=== PATIENT | male | born 1985 | race Hispanic/Latino ===

== ENCOUNTER 2018-01-07 19:05 | Emergency (ER) | payer SELFPAY ==
[2018-01-07 19:34] LABS: APPEARANCE,URINE Clear (CLEAR); BILIRUBIN,URINE Negative (NEGATIVE); COLOR,URINE Dark Yellow (YELLOW); GLUCOSE, URINE (UA) Negative (NEGATIVE); KETONES,URINE Trace mg/dL (NEGATIVE); LEUKOCYTE ESTERASE ,URINE Negative (NEGATIVE); NITRATE,URINE Negative (NEGATIVE); OCCULT BLOOD,URINE Negative (NEGATIVE); PROTEIN,URINE Trace (NEGATIVE)
[2018-01-07 19:49] LABS: CALCIUM OXALATE CRYSTALS,UR Few /LPF (None Seen)
[2018-01-07 19:50] LABS: MUCUS,URINE Moderate LPF (None Seen)
[2018-01-07 19:52] LABS: BACTERIA,URINE Few /HPF (None Seen)
[2018-01-07 20:03] LABS: BASOPHILS % (AUTO) 0.6 % (0.0-5.0); EOSINOPHILS % (AUTO) 2.4 % (0.0-8.0); HEMATOCRIT 44.1 % (42-54); LYMPHOCYTES % (AUTO) 27.9 % (21.0-51.0); MEAN CORPUSCULAR HEMOGLOBIN 29.4 pg (27.0-33.0); MEAN CORPUSCULAR HGB CONC 33.7 g/dL (32.0-36.0); MEAN CORPUSCULAR VOLUME 87.3 fL (79-99); MONOCYTES % (AUTO) 10.6 % (3.0-13.0); NEUTROPHILS % (AUTO) 58.5 % (40.0-77.0); PLATELET COUNT (AUTO) 273 K/uL (130-400); RED BLOOD CELL COUNT(AUTO) 5.06 MIL/uL (4.50-6.20); RED CELL DISTRIBUTION WIDTH 14.7 % (11.0-15.5); WHITE BLOOD COUNT (AUTO) 13.3 K/uL (4.8-10.8)
[2018-01-07 20:20] LABS: CREATININE 1.2 mg/dL (0.5-1.5); POTASSIUM 3.5 mmol/L (3.5-5.1)
[2018-01-07 20:25] LABS: ALBUMIN 3.6 g/dL (3.5-5.0); BILIRUBIN,TOTAL 0.4 mg/dL (0.2-1.0)
[2018-01-07] MEDS ORDERED: HYOSCYAMINE SULFATE 0.125 MG TAB.SUBL SL ONE (20:35)
[2018-01-07] MEDS ORDERED: CEFTRIAXONE SODIUM 500 MG VIAL ONE (20:45)
[2018-01-07] MEDS ORDERED: DOXYCYCLINE HYCLATE 100 MG TABLET PO ONE (20:46)
[2018-01-07] MEDS ORDERED: AZITHROMYCIN 250 MG TABLET PO ONE (20:46)
[2018-01-07] MEDS ORDERED: LIDOCAINE HCL-MPF 1% 2ML VIAL ONE (20:46)
== END 2018-01-07 21:04 | disposition home or self-care (01) ==
LOC: EDH 19:05
DX: K57.30 Diverticulosis of large intestine without perforation or abscess without bleeding (principal); N39.0 Urinary tract infection, site not specified; R03.0 Elevated blood-pressure reading, without diagnosis of hypertension; E07.9 Disorder of thyroid, unspecified; J45.909 Unspecified asthma, uncomplicated
CPT/HCPCS: 36415; 74176; 80053; 81001; 82150; 83690; 85025; 87088; 87486; 87797; 96372; 99285; J0696; J3490

== ENCOUNTER 2018-02-14 19:27 | Emergency (ER) | payer SELFPAY ==
[2018-02-14 20:13] LABS: BASOPHILS % (AUTO) 0.4 % (0.0-5.0); HEMATOCRIT 44.1 % (42-54); LYMPHOCYTES % (AUTO) 16.9 % (21.0-51.0); MEAN CORPUSCULAR HEMOGLOBIN 28.3 pg (27.0-33.0); MEAN CORPUSCULAR HGB CONC 32.8 g/dL (32.0-36.0); MEAN CORPUSCULAR VOLUME 86.5 fL (79-99); MONOCYTES % (AUTO) 9.6 % (3.0-13.0); NEUTROPHILS % (AUTO) 72.1 % (40.0-77.0); PLATELET COUNT (AUTO) 208 K/uL (130-400); RED CELL DISTRIBUTION WIDTH 14.1 % (11.0-15.5); WHITE BLOOD COUNT (AUTO) 12.6 K/uL (4.8-10.8)
[2018-02-14] MEDS ORDERED: ASPIRIN 325 MG TABLET ONE (20:24)
[2018-02-14] MEDS ORDERED: SODIUM CHLORIDE 0.9% 1000ML 1,000 ML IV ONE (20:24)
[2018-02-14 20:26] LABS: INR 0.94 (0.85-1.15); PARTIAL THROMBOPLASTIN TIME 30.3 SEC (26.3-35.5); PROTHROMBIN TIME 9.9 SEC (9.6-11.6)
[2018-02-14 20:35] LABS: APPEARANCE,URINE Clear (CLEAR); BILIRUBIN,URINE Negative (NEGATIVE); COLOR,URINE Yellow (YELLOW); GLUCOSE, URINE (UA) Negative (NEGATIVE); KETONES,URINE Negative (NEGATIVE); LEUKOCYTE ESTERASE ,URINE Negative (NEGATIVE); NITRATE,URINE Negative (NEGATIVE); OCCULT BLOOD,URINE Negative (NEGATIVE); PROTEIN,URINE Negative (NEGATIVE); UROBILINOGEN,URINE 0.2 mg/dL (0.2-1.0)
[2018-02-14 20:40] LABS: ALBUMIN 3.4 g/dL (3.5-5.0); BILIRUBIN,TOTAL 0.8 mg/dL (0.2-1.0); TOTAL PROTEIN, SERUM 6.7 g/dL (6.0-8.3)
[2018-02-14 20:42] LABS: POTASSIUM 2.9 mmol/L (3.5-5.1)
[2018-02-14] MEDS ORDERED: POTASSIUM BICARB/CIT AC 25 MEQ TABLET.EFF ONE (21:06)
== END 2018-02-14 22:04 | disposition home or self-care (01) ==
LOC: EDH 19:27
DX: R07.89 Other chest pain (principal); F12.10 Cannabis abuse, uncomplicated; J45.909 Unspecified asthma, uncomplicated; E07.9 Disorder of thyroid, unspecified; Z72.0 Tobacco use
CPT/HCPCS: 36415; 71045; 80053; 81003; 82550; 83735; 83874; 84484; 85025; 85610; 85730; 93005; 99284; J7030

== ENCOUNTER 2018-02-16 14:24 | Emergency (ER) | payer SELFPAY ==
[2018-02-16] MEDS ORDERED: ASPIRIN 325 MG TABLET ONE (14:58)
[2018-02-16 15:03] LABS: BASOPHILS % (AUTO) 0.5 % (0.0-5.0); EOSINOPHILS % (AUTO) 2.5 % (0.0-8.0); HEMATOCRIT 44.3 % (42-54); LYMPHOCYTES % (AUTO) 21.4 % (21.0-51.0); MEAN CORPUSCULAR HEMOGLOBIN 28.8 pg (27.0-33.0); MEAN CORPUSCULAR HGB CONC 33.4 g/dL (32.0-36.0); MEAN CORPUSCULAR VOLUME 86.2 fL (79-99); MONOCYTES % (AUTO) 8.5 % (3.0-13.0); NEUTROPHILS % (AUTO) 67.1 % (40.0-77.0); NUCLEATED RED BLOOD CELLS 0.1 % (0.0-0.19); PLATELET COUNT (AUTO) 232 K/uL (130-400); RED BLOOD CELL COUNT(AUTO) 5.14 MIL/uL (4.50-6.20); RED CELL DISTRIBUTION WIDTH 13.8 % (11.0-15.5); WHITE BLOOD COUNT (AUTO) 11.7 K/uL (4.8-10.8)
[2018-02-16 15:15] LABS: INR 0.89 (0.85-1.15); PARTIAL THROMBOPLASTIN TIME 28.8 SEC (26.3-35.5); PROTHROMBIN TIME 9.4 SEC (9.6-11.6)
[2018-02-16 15:16] LABS: POTASSIUM 3.3 mmol/L (3.5-5.1)
[2018-02-16 15:33] LABS: ALBUMIN 3.5 g/dL (3.5-5.0); BILIRUBIN,TOTAL 0.8 mg/dL (0.2-1.0); TOTAL PROTEIN, SERUM 6.9 g/dL (6.0-8.3)
[2018-02-16] MEDS ORDERED: POTASSIUM BICARB/CIT AC 25 MEQ TABLET.EFF ONE (16:28)
[2018-02-16 17:35] LABS: APPEARANCE,URINE Clear (CLEAR); BILIRUBIN,URINE Negative (NEGATIVE); COLOR,URINE Yellow (YELLOW); GLUCOSE, URINE (UA) Negative (NEGATIVE); KETONES,URINE Negative (NEGATIVE); LEUKOCYTE ESTERASE ,URINE Negative (NEGATIVE); NITRATE,URINE Negative (NEGATIVE); OCCULT BLOOD,URINE Negative (NEGATIVE); PROTEIN,URINE Negative (NEGATIVE)
[2018-02-16 17:45] LABS: AMPHET/METH SCREEN,URINE POSITIVE (NEGATIVE); BARBITURATE SCREEN, URINE NEGATIVE (NEGATIVE); BENZODIAZEPINES SCREEN,URINE NEGATIVE (NEGATIVE); CANNABINOID SCREEN,URINE POSITIVE (NEGATIVE); COCAINE SCREEN,URINE POSITIVE (NEGATIVE); OPIATE SCREEN,URINE NEGATIVE (NEGATIVE); PHENCYCLIDINE SCREEN,URINE NEGATIVE (NEGATIVE)
== END 2018-02-16 18:32 | disposition home or self-care (01) ==
LOC: EDH 14:24
DX: R07.89 Other chest pain (principal); F41.1 Generalized anxiety disorder; F14.10 Cocaine abuse, uncomplicated; F12.10 Cannabis abuse, uncomplicated; F15.10 Other stimulant abuse, uncomplicated; R20.2 Paresthesia of skin; J45.909 Unspecified asthma, uncomplicated; E07.9 Disorder of thyroid, unspecified; Z87.891 Personal history of nicotine dependence
CPT/HCPCS: 36415; 71045; 80053; 80305; 81003; 82550; 83690; 83735; 83874; 83880; 84484; 85025; 85610; 85730; 93005

== ENCOUNTER 2020-12-30 00:29 | Emergency (ER) | payer OTHER ==
[~2020-12-30] VITALS: Ht 170.2 cm; Wt 127.0 kg
[2020-12-30 01:04] LABS: BASOPHILS % (AUTO) 0.4 % (0.0-5.0); EOSINOPHILS % (AUTO) 1.6 % (0.0-8.0); HEMATOCRIT 36.1 % (42-54); LYMPHOCYTES % (AUTO) 14.5 % (21.0-51.0); MEAN CORPUSCULAR HEMOGLOBIN 27.6 pg (27.0-33.0); MEAN CORPUSCULAR HGB CONC 33.2 g/dL (32.0-36.0); MEAN CORPUSCULAR VOLUME 83.2 fL (79-99); MONOCYTES % (AUTO) 8.5 % (3.0-13.0); NEUTROPHILS % (AUTO) 74.6 % (40.0-77.0); PLATELET COUNT (AUTO) 322 K/uL (130-400); RED BLOOD CELL COUNT(AUTO) 4.34 MIL/uL (4.50-6.20); RED CELL DISTRIBUTION WIDTH 14.2 % (11.0-15.5); WHITE BLOOD COUNT (AUTO) 13.8 K/uL (4.8-10.8)
[2020-12-30 01:14] LABS: AMPHET/METH SCREEN,URINE POSITIVE (NEGATIVE); BARBITURATE SCREEN, URINE NEGATIVE (NEGATIVE); BENZODIAZEPINES SCREEN,URINE POSITIVE (NEGATIVE); CANNABINOID SCREEN,URINE POSITIVE (NEGATIVE); COCAINE SCREEN,URINE POSITIVE (NEGATIVE); OPIATE SCREEN,URINE NEGATIVE (NEGATIVE); PHENCYCLIDINE SCREEN,URINE NEGATIVE (NEGATIVE)
[2020-12-30 01:15] LABS: CREATININE 1.2 mg/dL (0.5-1.5)
[2020-12-30 01:19] LABS: ALBUMIN 4.4 g/dL (3.5-5.0); BILIRUBIN,TOTAL 0.6 mg/dL (0.2-1.0); TOTAL PROTEIN, SERUM 8.4 g/dL (6.0-8.3)
[2020-12-30] MEDS ORDERED: PHEN177S35 MM (01:21)
[2020-12-30] MEDS ORDERED: HYDROXYZINE 25 MG TABLET PO ONE (01:30)
[2020-12-30] MEDS ORDERED: HYD25 PO (01:40)
[2020-12-30] MEDS ORDERED: POTASSIUM BICARB/CIT AC 25 MEQ TABLET.EFF ONE (02:06)
[2020-12-30 02:08] VITALS: BP 145/78
[2020-12-30] MEDS ORDERED: POTASSIUM BICARB/CIT AC 25 MEQ TABLET.EFF PO ONE ×2 (02:30)
== END 2020-12-30 02:00 | disposition home or self-care (01) ==
LOC: EDH 00:29
DX: S10.11XA Abrasion of throat, initial encounter (principal); F22 Delusional disorders; X58.XXXA Exposure to other specified factors, initial encounter; Y93.89 Activity, other specified; Y92.89 Other specified places as the place of occurrence of the external cause; Y99.8 Other external cause status
CPT/HCPCS: 36415; 80053; 80305; 84484; 85025

== ENCOUNTER 2021-03-16 21:22 | Emergency (ER) | payer SELFPAY ==
[~2021-03-16] VITALS: Ht 172.7 cm; Wt 127.0 kg
[~2021-03-16 21:22] MED LIST: HYD25 PO; PHEN177S35 MM
[2021-03-16 21:23] VITALS: BP 129/86
== END 2021-03-16 21:29 | disposition left against medical advice (07) ==
LOC: EDH 21:22
DX: Z53.21 Procedure and treatment not carried out due to patient leaving prior to being seen by health care provider (principal)

== ENCOUNTER 2024-12-30 15:00 | Emergency (ER) | payer SELFPAY ==
[~2024-12-30] VITALS: Ht 170.2 cm; Wt 106.6 kg
--- NOTE | 2024-12-30 15:17 | ERN ---
General Chief Complaint: Weakness Stated Complaint: MUSCLE CRAMPING, HOMELESS Time Seen by MD: 15:12 History of Present Illness Initial Comments This is a 39-year-old man who presented with generalized weakness and joint pain, predominantly involving the knees. He reports having difficulty sleeping for past 3 days and currently appears drowsy. He denies other systemic symptoms such as fever, weight loss or recent trauma. Allergies: Coded Allergies: No Known Drug Allergies (Unverified Allergy, Unknown, 12/30/20) Home Meds Active Scripts Hydroxyzine HCl (Atarax) 25 Mg Tab, 25 MG PO TID for anxiety, #7 TAB Prov:REBA TONG MD 12/30/20 Phenol (Chloraseptic) 177 Ml [place].pump, 177 ML MM 5XDAY, #1 BOTTLE Prov:REBA TONG MD 12/30/20 Past Medical History Past Medical History: Asthma, Hypothyroid, Schizophrenia, Other Medical History Other: DRUG ABUSE, HYPOKALEMIA Past Surgical History: None Social History Social History: Drugs ROS Dictation REVIEW OF SYSTEMS CONSTITUTIONAL: Denies fever, chills, or night sweats. No unintentional weight loss reported. NEUROLOGICAL: Complained of generalized body aches and weakness. Denies headache, sensory deficit, vertigo/spinning sensation, gait abnormalities, or tremors. ENT: No hearing loss, otalgia, otorrhea, rhinitis, rhinorrhea, hoarseness, or sore throat. CARDIOVASCULAR: Denies any exertional angina, dyspnea on exertion, orthopnea, paroxysmal nocturnal dyspnea, palpitations, life-threatening arrhythmias, claudication. PULMONARY: Denies any chest pain, cough shortness of breath, GASTROINTESTINAL: Denies abdominal pain, nausea, vomiting, constipation, diarrhea. GENITOURINARY: Denies frequency, urgency, nocturia, hematuria or incontinence. Physical Exam Physical Exam Dictation PHYSICAL EXAM GENERAL APPEARANCE: The patient is drowsy but in no acute cardiopulmonary distress. NEUROLOGICAL: Alert and oriented x3, moving all extremities spontaneously. No focal deficit. HEENT: Face is symmetric. Pupils are equal and reactive. Extraocular movements are intact. CHEST: Normal chest expansion. LUNGS: Absence of any rales, rhonchi or any wheezing. CARDIOVASCULAR: Regular. S1 and S2 normal. No appreciable rubs, murmurs or gallops. ABDOMEN: Soft, nontender, nondistended. No guarding and rigidity. EXTREMITIES: No cyanosis, clubbing or edema. Results Laboratory and Microbiology Lab and Micro Result Laboratory Tests Test 12/30/24 15:33 12/30/24 17:50 White Blood Count 13.8 K/uL (4.8-10.8) H Red Blood Count 4.84 MIL/uL (4.50-6.20) Hemoglobin 12.9 g/dL (14.0-18.0) L Hematocrit 40.4 % (42-54) L Mean Corpuscular Volume 83.5 fL (79-99) Mean Corpuscular Hemoglobin 26.7 pg (27.0-33.0) L Mean Corpuscular Hemoglobin Concent 31.9 g/dL (32.0-36.0) L Red Cell Distribution Width 15.1 % (11.0-15.5) Platelet Count 301 K/uL (130-400) Mean Platelet Volume 10.3 fL (7.5-10.5) Immature Granulocyte % (Auto) 0.4 % (0-1) Neutrophils (%) (Auto) 68.6 % (40.0-77.0) Lymphocytes (%) (Auto) 21.1 % (21.0-51.0) Monocytes (%) (Auto) 6.5 % (3.0-13.0) Eosinophils (%) (Auto) 3.1 % (0.0-8.0) Basophils (%) (Auto) 0.3 % (0.0-5.0) Neutrophils # (Auto) 9.5 K/uL (1.8-7.7) H Lymphocytes # (Auto) 2.9 K/uL (1.0-4.8) Monocytes # (Auto) 0.9 K/uL (0.1-1.0) Eosinophils # (Auto) 0.43 K/uL (0.00-0.70) Basophils # (Auto) 0.04 K/uL (0.00-0.20) Absolute Immature Granulocyte (auto 0.06 K/uL (0-1) Nucleated Red Blood Cells 0.0 % (0.0-0.19) Sodium Level 142 mmol/L (136-145) Potassium Level 3.3 mmol/L (3.5-5.1) L Chloride Level 105 mmol/L (101-111) Carbon Dioxide Level 29 mmol/L (21-32) Blood Urea Nitrogen 12 mg/dL (7-18) Creatinine 0.9 mg/dL (0.5-1.3) Glomerular Filtration Rate Calc 112 mL/min (>90) Random Glucose 115 mg/dL (70-105) H Total Calcium 8.7 mg/dL (8.5-10.1) Total Bilirubin 0.7 mg/dL (0.2-1.0) Aspartate Amino Transf (AST/SGOT) 48 U/L (10-37) H Alanine Aminotransferase (ALT/SGPT) 82 U/L (12-78) H Alkaline Phosphatase 96 U/L (50-136) Total Creatine Kinase 303 U/L (21-232) #H Total Protein 7.6 g/dL (6.0-8.3) Albumin 3.6 g/dL (3.5-5.0) Lipase 23 U/L (16-77) Urine Color YELLOW (YELLOW) Urine Appearance CLOUDY (CLEAR) H Urine pH 6.0 (5.0-8.0) Urine Specific [place] 1.033 (1.001-1.031) Urine Protein 70 mg/dL (NEGATIVE) H Urine Glucose (UA) NEGATIVE mg/dL (NEGATIVE) Urine Ketones NEGATIVE mg/dL (NEGATIVE) Urine Occult Blood NEGATIVE (NEGATIVE) Urine Nitrate NEGATIVE (NEGATIVE) Urine Bilirubin NEGATIVE mg/dL (NEGATIVE) Urine Urobilinogen 0.2 mg/dL (0.2-1.0) Urine Leukocyte Esterase NEGATIVE [place]/uL Urine RBC 2-5 /HPF (0-1) H Urine WBC 2-5 /HPF (0-1) H Urine Squamous Epithelial Cells RARE /HPF (0-2) Urine Calcium Oxalate Crystals RARE /LPF (None Seen) Urine Bacteria None /HPF (None Seen) Urine Opiates Screen NEGATIVE (NEGATIVE) Urine Barbiturates Screen NEGATIVE (NEGATIVE) Urine Phencyclidine Screen NEGATIVE (NEGATIVE) Urine Amphetamines Screen NEGATIVE (NEGATIVE) Urine Benzodiazepines Screen NEGATIVE (NEGATIVE) Urine Cocaine Screen POSITIVE (NEGATIVE) H Urine Marijuana (THC) Screen POSITIVE (NEGATIVE) H EKG/XRAY/US/CT/MRI EKG Comment Date of examination: 12/30/2024, 16:13:30 Rate 89, sinus rhythm CT interval 150 QT interval [address] segment elevation MDM This is a 43-year-old male presented with weakness and joint pain, predominantly in the knees along with insomnia for 3 days and drowsiness on examination. Lab shows leukocytosis WBC 13.8, suggesting possible infection inflammation, and mild hypokalemia with potassium 3.3 that could contribute to weakness. Hemoglobin and sodium are within normal limits. Laboratory examination revealed potassium 3.3, sodium 142 and creatinine kinase 303. Complete blood count showed WBC 13.8 and hemoglobin 12.9. Chest x-ray was done findings were unremarkable. He was managed with potassium supplements 50 mEq t.i.d. t. Given stable vitals, improved symptoms he is appropriate for discharge. Empiric antibiotics are prescribed to address the possible early infectious source contributing to leukocytosis. Instructions: * Continue medications as prescribed * Encourage hydration, rest and good nutrition * Call 911 or come to ED for any alarming symptoms like high grade fever confusion, altered mental status, shortness of breath and chest pain. * Polysubstance abuse found on laboratory workup. Patient was advised on findings. ED Course Orders Procedure Category Date Status Time Cbc With Differential LAB 12/30/24 Complete 15:10 Comprehensive LAB 12/30/24 Complete Metabolic Panel 15:10 Urinalysis Profile LAB 12/30/24 Complete 15:10 Creatine Kinase, Total LAB 12/30/24 Complete 15:10 Lipase LAB 12/30/24 Complete 15:10 Drug Screen Urine LAB 12/30/24 Complete 15:10 12 Lead Ekg Tracing- EKG 12/30/24 Complete Technical 16:07 Chest 1vw RAD 12/30/24 Resulted 16:07 Potassium Bicarb/Cit PHA 12/30/24 In Process Ac 25meq (K-Lyte Ta 21:00 Current Medications Medications (Trade) Dose Ordered Sig/Benedict Route PRN Reason Start Time Stop Time Status Last Admin Dose Admin Potassium Bicarbonate (K-Lyte Tablet Eff 25 Meq Tablet.eff) 50 meq TID PO 12/30/24 21:00 01/29/25 20:59 Vital Signs Date Time Temp Pulse Resp B/P (MAP) Pulse Ox O2 Delivery O2 Flow Rate FiO2 12/30/24 15:01 98.2 100 20 144/71 99 Room Air 0 DX & DISP Disposition: Discharge Departure Impression: Primary Impression: Weakness generalized Additional Impression: Polysubstance abuse Condition: Stable Additional Instructions: Instructions: Continue medications as prescribed Encourage hydration, rest and good nutrition Call 911 or come to ED for any alarming symptoms like high grade fever confusion, altered mental status, shortness of breath and chest pain. Referrals: SELF,REFERRAL (PCP) DINA TUBBS MD Time of Disposition: 18:13 JOHN RANGEL MD Dec 30, 2024 15:17 ELBA GONZALEZ MD Dec 30, 2024 18:14
[2024-12-30 15:48] LABS: IMMATURE GRANULOCYTE ABSOLUTE 0.06 K/uL (0-1); NUCLEATED RED BLOOD CELLS 0.0 % (0.0-0.19); PLATELET COUNT (AUTO) 301 K/uL (130-400); RED BLOOD CELL COUNT(AUTO) 4.84 MIL/uL (4.50-6.20); RED CELL DISTRIBUTION WIDTH 15.1 % (11.0-15.5); WHITE BLOOD COUNT (AUTO) 13.8 K/uL (4.8-10.8)
[2024-12-30 16:00] LABS: CREATININE 0.9 mg/dL (0.5-1.3); GLOMERULAR FILTR. RATE CALC 112.0 mL/min (>90); GLUCOSE,RANDOM 115.0 mg/dL (70-105); SODIUM SERUM 142.0 mmol/L (136-145); UREA NITROGEN, BLOOD 12.0 mg/dL (7-18)
[2024-12-30 16:04] LABS: ASPARTATE AMINOTRANSFERASE 48.0 U/L (10-37); CREATINE KINASE, TOTAL 303.0 U/L (21-232); TOTAL PROTEIN, SERUM 7.6 g/dL (6.0-8.3)
--- NOTE | 2024-12-30 16:35 | HMCIMG ---
EXAM: CR Chest, 1 View. CLINICAL HISTORY: Rule out infection COMPARISON: None provided. FINDINGS: LUNGS: There is no mass, infiltrate, or acute pulmonary abnormality. PLEURAL SPACES: No pleural effusion or pneumothorax. MEDIASTINUM: The cardiomediastinal silhouette is within normal limits. BONES: No acute osseous abnormality. IMPRESSION: No acute cardiopulmonary pathology is evident. /[place]
[2024-12-30 18:01] LABS: ADD UA MICROSCOPIC YES; APPEARANCE,URINE CLOUDY (CLEAR); GLUCOSE, URINE (UA) NEGATIVE (NEGATIVE); LEUKOCYTE ESTERASE ,URINE NEGATIVE Leu/uL (NEGATIVE); NITRATE,URINE NEGATIVE (NEGATIVE); OCCULT BLOOD,URINE NEGATIVE (NEGATIVE)
[2024-12-30 18:06] LABS: CALCIUM OXALATE CRYSTALS,UR RARE /LPF (None Seen); SQUAMOUS EPITHELIAL CELL,UR RARE /HPF (0-2)
[2024-12-30 18:08] LABS: AMPHET/METH SCREEN,URINE NEGATIVE (NEGATIVE); BARBITURATE SCREEN, URINE NEGATIVE (NEGATIVE); CANNABINOID SCREEN,URINE POSITIVE (NEGATIVE); COCAINE SCREEN,URINE POSITIVE (NEGATIVE)
--- NOTE | 2024-12-30 18:11 | EKG ---
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
[2024-12-30 18:18] VITALS: BP 138/74; PULSE 92; RESP 20; TEMP 98.2; O2SAT 99
== END 2024-12-30 18:42 | disposition home or self-care (01) ==
LOC: EDH 15:00
DX: R53.1 Weakness (principal); F19.10 Other psychoactive substance abuse, uncomplicated; E03.9 Hypothyroidism, unspecified; J45.909 Unspecified asthma, uncomplicated; F20.9 Schizophrenia, unspecified; Z59.00 Homelessness unspecified
CPT/HCPCS: 36415; 71045; 80053; 80305; 81001; 82550; 83690; 85025; 93005; 99285

== ENCOUNTER 2025-01-29 11:08 | Emergency (ER) | payer SELFPAY ==
[~2025-01-29] VITALS: Ht 170.2 cm; Wt 180.1 kg
[2025-01-29] MEDS ORDERED: CYCL-309 PO (11:21)
[2025-01-29] MEDS ORDERED: IBUP-2077 PO (11:21)
--- NOTE | 2025-01-29 11:22 | ERN ---
ED Note History of Present Illness Stated Complaint: BACK Chief Complaint: Back Pain or Injury Time Seen by MD: 11:14 Dictation: IN HIS A MORBIDLY OBESE 39-YEAR-OLD MALE COMING IN TODAY WITH COMPLAINTS OF LOW BACK PAIN HE HAS HAD FOR SEVERAL YEARS ON-CALL. NO FEVER NO CHILLS NO NAUSEA VOMITING. HE HAS NOT SEEN HIS DOCTOR IN SEVERAL YEARS ON-CALL. STATES HE WAS WALKING TO A LOCAL [facility]ESS [facility] FOR A MEAL THIS MORNING WHEN HE STARTED HAVING BACK PAIN. DENIES ANY CHANGE IN BOWEL OR BLADDER FUNCTION THERE WAS NO SADDLE PARESTHESIA NO PAIN TO HIS LOWER EXTREMITIES. HE HAS NOT TAKEN TO ARRIVAL Allergies: Coded Allergies: No Known Drug Allergies (Unverified Allergy, Unknown, 12/30/20) Home Meds Active Scripts Hydroxyzine HCl (Atarax) 25 Mg Tab, 25 MG PO TID for anxiety, #7 TAB Prov:REBA TONG MD 12/30/20 Phenol (Chloraseptic) 177 Ml [place].pump, 177 ML MM 5XDAY, #1 BOTTLE Prov:REBA TONG MD 12/30/20 Past Medical History Past Medical History: Hypothyroid Additional Past Medical Hx: CHRONIC BACK PAIN Surgical History: None Social History: Drugs RN Note Reviewed/Agreed w/PFSH: Yes Review of System Dictation CONSTITUTIONAL: NEGATIVE EXCEPT FOR HPI HEAD/FACE: NEGATIVE EXCEPT FOR HPI EENT: NEGATIVE EXCEPT FOR HPI RESPIRATORY: NEGATIVE EXCEPT FOR HPI GASTROINTESTINAL/ABDOMINAL: NEGATIVE EXCEPT FOR HPI GENITOURINARY: NEGATIVE EXCEPT FOR HPI MUSCULOSKELETAL: NEGATIVE EXCEPT FOR HPI DIFFUSE LUMBAR PAIN INTEGUMENTARY: NEGATIVE EXCEPT FOR HPI NEUROLOGICAL/PSYCH: NEGATIVE EXCEPT FOR HPI HEMATOLOGIC/LYMPHATIC: NEGATIVE EXCEPT FOR HPI ALL SYSTEMS NEGATIVE, EXCEPT NOTED ABOVE. 13 POINT REVIEW OF SYSTEMS ASSESSED AND ALL NEGATIVE EXCEPT FOR ABOVE. Initial Vital Sign VS Vital Signs Date Time Temp Pulse Resp B/P (MAP) Pulse Ox O2 Delivery O2 Flow Rate FiO2 01/29/25 11:11 97.9 88 18 154/83 96 Room Air 0 Physical Exam Dictation VITAL SIGNS REVIEWED GENERAL APPEARANCE: ALERT, ORIENTED X 3, MILD ACUTE DISTRESS, WELL DEVELOPED, NOURISHED. MORBID OBESITY HEAD AND FACE: NON-TRAUMATIC. EYES: PERRL, PINK CONJUNCTIVAS, EYELID NO TRAUMA, ANTERIOR CHAMBER WITH ARCUS SENILIS. EARS: PINNAS INTACT AND NO SIGNS OF TRAUMA OR ERYTHEMA EAR CANALS CLEAR AND NO DISCHARGE TM NO ERYTHEMA NOSE: NO DISCHARGE, NO BLEEDING. OROPHARYNX: MOUTH NORMAL, TONGUE PINK, PHARYNX CLEAR,NO ERYTHEMA, TONSILS NO EXUDATES, NO ABSCESSES NOTED, MUCOUS MEMBRANE MOIST NECK: SUPPLE, NON-TENDER, NO THYROMEGALY, NO MASSES, NO JVD, NO BRUITS BREAST:DEFERRED CHEST:NO TENDERNESS, NO CREPITUS, NO PARADOXICAL MOVEMENT, NO RETRACTIONS LUNGS:CLEAR, WELL-VENTILATED, SYMMETRIC, NO RALES, NO WHEEZING, NO RHONCHI, NO STRIDOR, GOOD BREATH SOUNDS BILATERALLY HEART: REGULAR RATE, REGULAR RHYTHM, NO MURMUR, NO GALLOPS VASCULAR: NO PERIPHERAL EDEMA, ABDOMEN: SOFT, POSITIVE BOWEL SOUNDS, NONDISTENDED, NO GUARDING, NONTENDER, NO REBOUND, NO MASSES NO HEPATOMEGALY, NO SPLENOMEGALY, NO BUCKLEY'S SIGN, NO HERNIAS. RECTAL: DEFERRED GENITAL: DEFERRED NEUROLOGICAL: NORMAL SPEECH, MOTOR FUNCTION INTACT, SENSORY FUNCTION INTACT MUSCULOSKELETAL: NECK NONTENDER, FULL RANGE OF MOTION, DIFFUSE LUMBOSACRAL PAIN. FULL RANGE OF MOTION, NO STEP-OFFS NEGATIVE STRAIGHT LEG RAISE BILATERALLY 10 EXTREMITIES: NONTENDER, FULL RANGE OF MOTION SKIN: COLOR PINK, DRY, NO TURGOR, NO RASH, NO LACERATIONS, NO ABRASIONS, NO CONTUSIONS. LYMPHATIC: DEFERRED Results (Laboratory/Radiology) Labs Reviewed?: Yes ED Course ED Course Orders Procedure Category Date Status Time Cyclobenzaprine Hcl PHA 01/29/25 Verified (Cyclobenzaprine Hcl 11:30 Ibuprofen 800 Mg Tab PHA 01/29/25 Verified (Motrin) 11:30 Vital Signs Date Time Temp Pulse Resp B/P (MAP) Pulse Ox O2 Delivery O2 Flow Rate FiO2 01/29/25 11:11 97.9 88 18 154/83 96 Room Air 0 1120/NO LABS OR IMAGING INDICATED. PATIENT WILL BE TREATED WITH IBUPROFEN AND FLEXERIL REFERRED TO HIS PRIMARY CARE DOCTOR Medical Decision Making MDM MEDICAL DECISION-MAKING BASED ON EMPIRIC TREATMENT FOR ACUTE EXACERBATION CHRONIC LOW BACK PAIN. NO LABS OR IMAGING INDICATED PATIENT GIVEN FLEXERIL AND IBUPROFEN IN THE EMERGENCY ROOM PRESCRIBED THE SAME FOR OUTPATIENT USE TOLD USE WARM COMPRESSES THREE TO 4 TIMES A DAY AND SEE HIS PRIMARY CARE DOCTOR DX & DISP Disposition: Discharge Departure Impression: Primary Impression: Acute exacerbation of chronic low back pain Additional Impression: Morbid obesity Condition: Stable Scripts Cyclobenzaprine HCl (Cyclobenzaprine HCl) 10 Mg Tablet 1 TAB PO TID for muscle spasms for 10 Days, #30 TAB 0 Refills Prov: ELZATOMA SILVERMAN 01/29/25 Ibuprofen (Ibuprofen 800 mg Tab) 800 Mg Tab 800 MG PO Q8H PRN for fever or pain, #30 TAB 0 Refills Prov: TOMA BERTRAND Chelsie CRUZP 01/29/25 Additional Instructions: FOLLOW-UP WITH PRIMARY CARE PROVIDER IN 1 TO 2 DAYS. TAKE MEDICATIONS DIRECTED HERE IN THE EMERGENCY ROOM. OKAY TO CONTINUE HOME MEDICATIONS UNLESS OTHERWISE DISCUSSED DURING YOUR VISIT IN THE EMERGENCY ROOM TODAY. RETURN TO YOUR NEAREST EMERGENCY ROOM IF SYMPTOMS WORSEN OR IF THERE IS NO IMPROVEMENT. CALL 911 IF YOU NEED IMMEDIATE ASSISTANCE. TAKE TYLENOL OR MOTRIN [id number] NEEDED AND IF NO CONTRAINDICATIONS ARE PRESENT. INCREASE ORAL HYDRATION. A WOUND CULTURE OR URINE CULTURE WAS ORDERED HERE IN THE EMERGENCY ROOM DEPARTMENT PLEASE FOLLOW-UP WITH PRIMARY CARE PROVIDER AND ADVISE THEM TO GET REPEAT PORTS FROM OUR FACILITY. IF YOU HAD ANY MEJIA WRAP/SPLINTS THAT WERE APPLIED HERE, PLEASE DO NOT REMOVE THEM UNTIL YOU SEE YOUR PRIMARY CARE OR SPECIALTY. TAKE IBUPROFEN AND FLEXERIL EVERY 8 HOURS WITH FOOD FOR THE NEXT THREE DAYS. WARM COMPRESSES TO BACK THREE TO 4 TIMES A DAY. SEE YOUR PRIMARY CARE DOCTOR FOR FOLLOW UP IN THE NEXT 1-2 DAYS. Referrals: SELF,REFERRAL (PCP) Time of Disposition: 11:20 I have reviewed the case, and I agree with, Diagnosis and Plan TOMA BERTRAND Chelsie SILVERMAN Jan 29, 2025 11:21
[2025-01-29] MEDS: CYCLOBENZAPRINE HCL 10 MG TABLET PO ONE (11:53)
[2025-01-29 11:55] VITALS: BP 147/80; PULSE 80; RESP 18; TEMP 97.9; O2SAT 97
== END 2025-01-29 12:06 | disposition home or self-care (01) ==
LOC: EDH 11:08
DX: G89.29 Other chronic pain (principal); M54.50 Low back pain, unspecified; E03.9 Hypothyroidism, unspecified; E66.01 Morbid (severe) obesity due to excess calories
CPT/HCPCS: 99283